=== PATIENT | male | born 2000 | race Caucasian/White ===

== ENCOUNTER 2022-11-04 16:55 | Emergency (ER) | payer OTHER ==
[2022-11-04 17:12] VITALS: BP 126/67; PULSE 74; RESP 18; TEMP 97.9; BMI 31.0
[2022-11-04] MEDS ORDERED: FAMOTIDINE 20 MG TABLET PO ONE (18:28)
[2022-11-04] MEDS ORDERED: diphenhydrAMINE HCL 25 MG CAPSULE (FP) PO ONE ×3 (18:29→18:34)
[2022-11-04] MEDS ORDERED: FAMOTIDINE 20 MG TABLET ONE (18:33)
== END 2022-11-04 19:19 | disposition home or self-care (01) ==
LOC: JER 16:55 → JERFT 16:55
PROC: 3E0233Z Introduction of Anti-inflammatory into Muscle, Percutaneous Approach (ICD-10-PCS; principal; 2022-11-04)
DX: L50.9 Urticaria, unspecified (principal)
CPT/HCPCS: 99283-25

== ENCOUNTER 2023-08-18 12:11 | Emergency (ER) | payer OTHER ==
[2023-08-18 12:42] VITALS: PULSE 68; TEMP 98.6; BMI 31.1
[2023-08-18] MEDS ORDERED: LACTATED RINGERS SOLUTION 1000 ML INFUS.BAG IV ONE (13:31)
[2023-08-18] MEDS ORDERED: ONDANSETRON 4 MG/2 ML VIAL IVPUSH ONE (13:31)
[2023-08-18 14:07] LABS: BASO % 0.1 % (0-2.0); EOS % 0.2 % (0-4.5); HEMATOCRIT 45.7 % (35.4-49); HEMOGLOBIN 15.2 GM/dL (11.7-16.9); LYMPH % 8.7 % (8-40); MCH 29.9 pg (25.7-33.7); MCHC 33.3 g/dl (32.0-35.9); MEAN CELL VOLUME 89.8 fl (80-96); MEAN PLT VOLUME 8.3 fl (7.5-11.1); MONO % 3.7 % (3.8-10.2); NEUT % 87.3 % (42.8-82.8); PLATELET COUNT 282 10^3/uL (134-434); RDW 13.9 % (11.9-15.9); WHITE BLOOD COUNT 14.6 K/mm3 (4.0-10.0)
[2023-08-18 14:29] LABS: POTASSIUM 4.4 mmol/L (3.5-5.1)
[2023-08-18 14:31] LABS: ALBUMIN 4.2 g/dl (3.4-5.0); BLOOD UREA NITROGEN 11.3 mg/dL (7-18); MAGNESIUM 2.1 mg/dL (1.8-2.4)
[2023-08-18 14:34] LABS: CREATININE 0.9 mg/dL (0.55-1.3)
[2023-08-18 14:37] LABS: BILIRUBIN,TOTAL 0.4 mg/dL (0.2-1); TOT PROT 7.7 g/dl (6.4-8.2)
[2023-08-18 16:33] VITALS: BP 133/76; RESP 18
== END 2023-08-18 16:33 | disposition home or self-care (01) ==
LOC: JER 12:11
PROC: 3E033GC Introduction of Other Therapeutic Substance into Peripheral Vein, Percutaneous Approach (ICD-10-PCS; principal; 2023-08-18)
DX: R11.2 Nausea with vomiting, unspecified (principal)
CPT/HCPCS: 36415; 80053; 83690; 83735; 85025; 99284-25

== ENCOUNTER 2024-02-12 10:15 | Emergency (ER) | payer OTHER ==
[2024-02-12 10:20] VITALS: BP 124/76; PULSE 85; RESP 20; TEMP 98.6; BMI 28.7
[2024-02-12] MEDS ORDERED: ALBUTEROL SO4 2.5/IPRATROPIUM 0.5 INH SOL 3 ML VIAL.NEB. NEB ONE ×2 (10:52→11:47)
[2024-02-12] MEDS: ALBUTEROL SO4 2.5/IPRATROPIUM 0.5 INH SOL 3 ML VIAL.NEB. NEB ONE ×2 (10:57→11:56)
[2024-02-12] MEDS ORDERED: DEXAMETHASONE SOD PHOSPHATE 10 MG/1 ML VIAL ONE (11:47)
[2024-02-12] MEDS: DEXAMETHASONE SOD PHOSPHATE 10 MG/1 ML VIAL IM ONE (11:56)
== END 2024-02-12 12:56 | disposition home or self-care (01) ==
LOC: JERFT 10:15
PROC: 3E023GC Introduction of Other Therapeutic Substance into Muscle, Percutaneous Approach (ICD-10-PCS; principal; 2024-02-12)
PROC: 3E0F7GC Introduction of Other Therapeutic Substance into Respiratory Tract, Via Natural or Artificial Opening (ICD-10-PCS; 2024-02-12)
PROC: 3E0F7GC Introduction of Other Therapeutic Substance into Respiratory Tract, Via Natural or Artificial Opening (ICD-10-PCS; 2024-02-12)
DX: R07.89 Other chest pain (principal); R06.2 Wheezing; R06.02 Shortness of breath; R05.9 Cough, unspecified; R09.81 Nasal congestion; J02.9 Acute pharyngitis, unspecified; Z20.822 Contact with and (suspected) exposure to COVID-19
CPT/HCPCS: 0241U-QW; 71046-TC-FY; 93005; 93010; 99285-25; J1100